=== PATIENT | female | born 1965 | race Caucasian/White ===

== ENCOUNTER 2016-08-13 06:29 | Day surgery (SDC) | payer OTHER ==
[2016-08-13] MEDS ORDERED: SILVER NITRATE APPLICATOR 1 APPL TP ONE (07:31)
[2016-08-13] MEDS ORDERED: MIDAZOLAM 2 MG/2 ML VIAL ONE (07:52)
[2016-08-13] MEDS ORDERED: fentaNYL 100 MCG/2 ML INJ ONE ×2 (07:54→08:41)
[2016-08-13] MEDS ORDERED: PROPOFOL 200 MG/20 ML VIAL ONE ×2 (07:55→08:20)
[2016-08-13] MEDS ORDERED: DEXAMETHASONE 4 MG/ML VIAL ONE (07:56)
[2016-08-13] MEDS ORDERED: RANITIDINE 50 MG/2 ML VIAL ONE (08:36)
[2016-08-13] MEDS ORDERED: ONDANSETRON 4 MG/2 ML VIAL ONE (08:40)
[2016-08-13] MEDS ORDERED: KETOROLAC 30 MG/1 ML SDV ONE (09:07)
[2016-08-13] MEDS ORDERED: HYDROCODONE/APAP 5/325 TAB ONE (09:45)
--- NOTE | 2016-08-13 10:33 | GOP ---
[f rep st] OPERATIVE REPORT DATE OF OPERATION: 08/13/2016 SURGEON: Lesa Hein MD ANESTHESIA: Kanu Sanford MD, general with LMA. PREOPERATIVE DIAGNOSIS: 1. Dysfunctional uterine bleeding. 2. Symptomatic submucosal fibroid. POSTOPERATIVE DIAGNOSIS: 1. Dysfunctional uterine bleeding. 2. Symptomatic submucosal fibroid. PROCEDURE PERFORMED: 1. Hysteroscopic myomectomy. 2. NovaSure endometrial ablation. FINDINGS: An anterior and left-sided submucosal fibroid, otherwise normal endometrium. This measured about 1-2 cm. ESTIMATED BLOOD LOSS: Minimal INDICATIONS: Patient is a 51-year-old, who has had lifelong very heavy periods. In the past she has had an IUD that worked very well, and then a year ago had an IUD placed again and that perforated her uterus. She ended up needing laparoscopic removal. She continues to have very heavy bleeding. Ultrasound showed a very likely submucosal filling defect fibroid measuring 1.8 cm on the anterior wall. Patient desires definitive treatment with removal and endometrial ablation. Vasectomy for control. DESCRIPTION OF PROCEDURE: With informed consent signed, patient taken to the operating room, placed under general anesthesia, placed in a low dorsal lithotomy position, prepped and draped in the usual sterile fashion. Bladder previously emptied. Tenaculum placed on anterior lip of the cervix. Cervix dilated to 9.5 mm. Hysteroscope placed using normal saline as a filling defect , and removal of the fibroid with the [employer] blade. Once it was felt to be even with the endometrium, the hysteroscope was removed and the NovaSure endometrial ablation device placed into the uterine cavity. Length was 6 cm with 3.5 cm integrity test passed and ablation time was 67 seconds. Net fluid deficit was 180 cc. Patient was placed in the supine position, awakened in the operating room, and taken to recovery room in stable condition. She tolerated the procedure well. COMPLICATIONS: None. /[id number]/MODL MTDD
== END 2016-08-13 10:47 | disposition home or self-care (01) ==
LOC: FSGY 06:29
PROVIDERS: ATTEND Obstetrics & Gynecology Gynecology
PROC: 0UB98ZZ Excision of Uterus, Via Natural or Artificial Opening Endoscopic (ICD-10-PCS; principal; 2016-08-13 08:00)
DX: D25.0 Submucous leiomyoma of uterus (principal); N93.8 Other specified abnormal uterine and vaginal bleeding
CPT/HCPCS: 58561; 58563; C1782; J1100; J1885; J2250; J2405; J2704; J2780; J3010

== ENCOUNTER → 2016-10-14 | Outpatient (CLI) | payer OTHER | LOC: FIMAGING 08:41 | PROVIDERS: ATTEND Obstetrics & Gynecology Gynecology | DX: Z12.31 Encounter for screening mammogram for malignant neoplasm of breast (principal) | CPT/HCPCS: G0202 ==

== ENCOUNTER → 2017-10-19 | Outpatient (CLI) | payer OTHER | LOC: FIMAGING 07:36 | PROVIDERS: ATTEND Obstetrics & Gynecology Gynecology | DX: Z12.31 Encounter for screening mammogram for malignant neoplasm of breast (principal) ==

== ENCOUNTER → 2018-10-20 | Outpatient (CLI) | payer OTHER | LOC: FIMAGING 08:46 ==